=== PATIENT | male | born 1985 | race Two or more races ===

== ENCOUNTER 2018-01-16 23:39 | Emergency (ER) | payer OTHER ==
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
[2018-01-17 03:02] LABS: PLATELET COUNT 225 10^3/uL (150-400)
--- NOTE | 2018-01-17 03:34 | CPEKG ---
Heart Rate: 63 RR Interval: 952 P-R Interval: 160 QRSD Interval: 96 QT Interval: 408 QTC Interval: 418 P [place]: 65 QRS [place]: 68 T Wave [place]: 25 EKG Severity - ABNORMAL ECG - EKG Impression: SINUS RHYTHM EKG Impression: ST ELEVATION SUGGESTS PERICARDITIS Electronically Signed By: Eran Kline 17-Jan-2018 06:49:37
[2018-01-17 04:15] VITALS: BP 129/73
== END 2018-01-17 04:15 | disposition home or self-care (01) ==
DX: T14.8XXA Other injury of unspecified body region, initial encounter (principal); R00.2 Palpitations; V23.4XXA Motorcycle driver injured in collision with car, pick-up truck or van in traffic accident, initial encounter; Y92.410 Unspecified street and highway as the place of occurrence of the external cause; Y99.8 Other external cause status; Y93.89 Activity, other specified